=== PATIENT | female | born 1960 | race Caucasian/White ===

== ENCOUNTER 2023-06-23 00:49 | Day surgery (SDC) | payer OTHER, SELFPAY ==
[2023-06-19 17:08] VITALS: BMI 29.6
--- NOTE | 2023-06-19 17:15 | PC.NURSE ---
Report to the Outpatient Waiting Room, entrance under the green pavilion located off [facility], at 0945 on 06-23-23. Planned Procedure Time: 1145. Time changes happen often and if your time is changed the preop area will call you the afternoon before. - You and your visitor will be asked to self-screen and do not enter if you have any COVID symptoms. - A mask is optional within the hospital at this time. Patients may have clear liquids (water, carbonated beverages, clear teas, apple juice) until 3 hours prior to surgery with a maximum of 20 ounces. 0845 - No food from midnight until time of surgery - Infants may have breast milk until 4 hours before surgery, formula 6 hours prior to surgery. - Children will be allowed to drink immediately following surgery. If applicable, please bring a bottle or sippy cup to assist with drinking. Juice, water, soda, and popsicles are readily available. For infants on formula, please bring formula the day of surgery. Pacifiers are allowed. Take the following medications with a SIP of water the morning of surgery: metoprolol DO NOT STOP ANY OF YOUR OTHER PRESCRIPTION MEDICATIONS PRIOR TO SURGERY ?EXCEPT THE FOLLOWING Medications to discontinue per physician: vitamins and supplements Date to take last dose: 06-20-23 Please no make-up, nail slovenian, hairspray, perfume, deodorant, or body powder the day of surgery. No jewelry (including any body piercings) or valuables the day of surgery, leave them at home. Please take a shower or bath the night before, or the morning of, surgery with an antibacterial soap. Wear comfortable, loose fitting clothing. Children are encouraged to wear pajamas. - Jewelry must be removed prior to entering the operating room. Rings and piercings that are not removed may be cut off. - The hospital will not accept responsibility for valuables. - Please leave all valuables, including medications, at home the day of surgery. If you are going home after surgery, a licensed driver helper must drive you home. - NO public transportation without another adult if you receive anesthesia. - We recommend that an adult stay with you for 24 hours following discharge. - We also recommend that you do not drive, make important decision, drink alcoholic beverages, or take any drugs that were not prescribed by your health care provider for at least 24 hours after your discharge time. For Pediatric surgeries, we recommend two adults accompany the child home. Follow any additional instructions given to you from your surgeon. If you or anyone in your household have experienced Covid symptoms in the past week, please notify your surgeon or the nurse liaison at the phone number below for possible testing. Telephone instructions given to Amarilis Dai and asked if any additional questions and then verbalized understanding. Patient advised to call surgeon office or pre surgery nurse liaison [phone] if any additional questions.
--- NOTE | 2023-06-23 08:00 | WPDHPUPDATE1 ---
History and Physical Update Update Date/Time: 06/23/23 08:00 History and Physical has been reviewed, including an updated exam of the patient. There are NO changes in the patient's condition. Risks, benefits, and alternatives have been discussed and questions answered. Patient agrees to proceed with procedure.
--- NOTE | 2023-06-23 08:00 | PM.HPGS ---
History of Present Illness History of Present Illness Consent: Risks, benefits, and alternatives have been discussed and questions answered. Patient agrees to proceed with procedure. Chief complaint: post menopausal bleeding Narrative: Dipika Dai is a 63 year old female with postmenopausal bleeding. Pelvic ultrasound showed a thickened endometrium. Patient underwent hysteroscopy in the office and a sessile polyp was noted posteriorly. Attempts to remove in the office were not successful. It was recommended to undergo D&C hysteroscopy in the operating room in order to have a resection device. Patient voiced understanding and agrees to proceed. Risks of infection, bleeding, perforation, and possible pathology are discussed. Review of Systems Review of Systems: not repeated day of surgery; patient states no changes in status PMFSH Past Medical History Medical History (Updated 06/23/23 @ 08:03 by Kamille Mueller MD) Anxiety HTN (hypertension) Hypercholesterolemia (normal spontaneous vaginal delivery) x 6 Surgical History Surgical History (Updated 06/23/23 @ 08:02 by Kamille Mueller MD) History of hysteroscopy History of knee surgery Social History Social History Smoking status: Never smoker Second hand tobacco smoke exposure: No Alcohol intake: never Substance use: never Substance use type: does not use Living arrangements: with family Spiritual care concerns: No Meds Home Medications and Allergies Home Medications Medication Instructions Recorded Confirmed Type cholecalciferol (vitamin D3) 25 25 mcg PO DAILY 06/19/23 06/19/23 History mcg (1,000 unit) tablet (Vitamin D3) lisinopril 10 mg tablet 10 mg PO DAILY 06/19/23 06/19/23 History magnesium 200 mg tablet 400 mg PO DAILY 06/19/23 06/19/23 History metoprolol succinate 50 mg 50 mg PO DAILY 06/19/23 06/19/23 History tablet,extended release 24 hr multivit with minerals-iron 18 1 tablet PO DAILY 06/19/23 06/19/23 History mg-folic ac 400 mcg-vit K 25 mcg tablet (Adults Multivitamin) rosuvastatin 5 mg tablet 5 mg PO DAILY 06/19/23 06/19/23 History turmeric 400 mg capsule 400 mg PO DAILY 06/19/23 06/19/23 History Allergies Allergy/AdvReac Type Severity Reaction Status Date / Time No Known Allergies Allergy Verified 06/19/23 16:42 Exam Const: General: healthy appearing and alert Orientation/consciousness: patient oriented x3 Resp: Effort & Inspection: normal respiratory effort GI: GI Palp: Yes Soft to palpation, No Tenderness to palpation present (GI) and No Palpable mass present : External Female Exam: normal external appearance Speculum Exam - Vagina: normal appearance of the vagina and normal vaginal discharge Speculum Exam - Cervix: normal appearance of the cervix Bimanual exam- vagina & uterus: uterine size normal and consistency normal Bimanual Exam- Adnexa, other: normal adnexae and No adnexal tenderness Neuro: General: patient oriented x3 Assessment and Plan Assessment and plan (1) Endometrial polyp: Code(s): N84.0 - Polyp of corpus uteri Status: Acute Assessment and Plan: plan to proceed with hysteroscopic resection and D&C
--- NOTE | 2023-06-23 08:27 | P.PNAN_ITS ---
Anes - Initial Pre Proc Eval Procedure: Operation Date: 06/23/23 11:45 Proposed Procedures p Hysteroscopy Dilation and Curettage - Kamille Mueller MD Date/Time: 06/23/23 08:27 Surgeon: Kamille Mueller MD Pre Op Diagnosis: post menopausal bleeding Patient Data Age: 63 Gender: F Height: 1.61 m Weight: 77.11 kg Allergies Allergy/AdvReac Type Severity Reaction Status Date / Time No Known Allergies Allergy Verified 06/23/23 10:02 Home Medications Medication Instructions Recorded Confirmed Type cholecalciferol (vitamin D3) 25 25 mcg PO DAILY 06/19/23 06/19/23 History mcg (1,000 unit) tablet (Vitamin D3) lisinopril 10 mg tablet 10 mg PO DAILY 06/19/23 06/19/23 History magnesium 200 mg tablet 400 mg PO DAILY 06/19/23 06/19/23 History metoprolol succinate 50 mg 50 mg PO DAILY 06/19/23 06/19/23 History tablet,extended release 24 hr multivit with minerals-iron 18 1 tablet PO DAILY 06/19/23 06/19/23 History mg-folic ac 400 mcg-vit K 25 mcg tablet (Adults Multivitamin) rosuvastatin 5 mg tablet 5 mg PO DAILY 06/19/23 06/19/23 History turmeric 400 mg capsule 400 mg PO DAILY 06/19/23 06/19/23 History Patient hx anesthesia problems: none Family hx anesthesia problems: none Results Review: All pre-operative results and documents have been reviewed as part of the pre- operative evaluation. [facility] Past Medical History Medical History (Updated 06/23/23 @ 08:03 by Kamille Mueller MD) Anxiety HTN (hypertension) Hypercholesterolemia (normal spontaneous vaginal delivery) x 6 Surgical History Surgical History (Updated 06/23/23 @ 08:02 by Kamille Mueller MD) History of hysteroscopy History of knee surgery Social History Social History Smoking status: Never smoker Second hand tobacco smoke exposure: No Alcohol intake: never Substance use: never Substance use type: does not use Living arrangements: with family Spiritual care concerns: No Anes - Eval Final PreProcedure Day of Procedure 06/23/23 08:27 Patient weight: overweight Heart: regular rate and rhythm Lungs: clear to auscultation Airway: Mallampati scale class III Neurological: alert and oriented Last oral intake: >/= 8 hours ASA classification: III Emergent: no Anesthetic plan: proceed Anesthesia type and monitoring: general GIVS and standard monitoring Results Review: All pre-operative results and documents have been reviewed as part of the pre- operative evaluation. Informed Consent: The patient's anesthetic plan and its attendant risks and benefits were discuss ed with the patient/family/POA. Questions were solicited and answers provided to the satisfaction of the patient/family/POA.
[2023-06-23] MEDS: ACETAMINOPHEN 500 MG TABLET 1000 MG PO (10:07)
[2023-06-23 10:15] VITALS: BP 125/90; PULSE 66; RESP 16; TEMP 36.8; O2SAT 97
[2023-06-23] MEDS: LACTATED RINGERS 1,000 ML 30 ML IV CONT (10:30)
[2023-06-23] MEDS: KETOROLAC 15 MG/ML VIAL (*BKC) IV PUSH (11:12)
--- NOTE | 2023-06-23 11:17 | P.OP_ITS ---
Procedure Note - Detailed Date of Procedure 06/23/23 Pre-op Diagnosis post menopausal bleeding & endometrial polyp Post-op Diagnosis Same Procedure Performed D&C hysteroscopy with resection polyp Surgeon Kamille Mueller MD Anesthesia MAC Findings uterus sounds to 9cm endometrium appears grossly atrophic sessile posterior polyp Description of Procedure The patient is taken to the operating room and placed under anesthesia in the dorsal lithotomy position. She was prepped and draped in the usual sterile fashion. [place] speculum was placed in the vagina and the cervix grasped on the anterior lip with a tenaculum. The uterus is sounded to 9cm. The hysteroscope was placed and with the above-stated findings the resection device is placed through the hysteroscope. Under direct visualization the entire polyp was removed. The instruments are removed from the uterus and the OO sharp curette is used to curette the endometrium until a good uterine cry was noted in all areas. All instruments are removed. The patient was awakened from anesthesia and taken to recovery in stable condition. Sponge, needle, and instrument counts are correct per the OR staff. Estimated Blood Loss 5 Drains No Packing No Pathology Yes ( Endometrial shavings and curettings) Complications No immediate complications Condition Stable Disposition PACU
[2023-06-23 11:18] VITALS: BP 102/67; PULSE 66; RESP 16; O2SAT 93
[2023-06-23 11:45] VITALS: BP 109/70; PULSE 64; RESP 16; O2SAT 97
[2023-06-23 12:00] VITALS: BP 112/80; PULSE 62; RESP 16
== END 2023-06-23 12:11 | disposition home or self-care (01) ==
PROVIDERS: PCP Hospitalist; Visit Provider Obstetrics & Gynecology Gynecology
PROC: 0U5B8ZZ Destruction of Endometrium, Via Natural or Artificial Opening Endoscopic (ICD-10-PCS; CPT 58563; principal; 2023-06-23 11:45)
DX: N95.0 Postmenopausal bleeding (principal); N84.0 Polyp of corpus uteri; I10 Essential (primary) hypertension; E78.00 Pure hypercholesterolemia, unspecified; F41.9 Anxiety disorder, unspecified
CPT/HCPCS: 58558; 88305; A9270; J1885; J2250; J2704; J3010; J7120